=== PATIENT | male | born 1960 | race Caucasian/White ===

== ENCOUNTER 2022-07-29 09:48 | Outpatient (CLI) | payer OTHER ==
--- NOTE | 2022-07-29 14:41 | XRAY Report ---
PROCEDURE: Knee 3 View RT INDICATIONS: PAIN IN RIGHT KNEE TECHNIQUE: 3 views of the right knee are obtained. COMPARISON: None. FINDINGS: Bones: No fractures or dislocations. No suspicious bony lesions. Mild tricompartment periarticular osteophyte formation. Soft tissues: No joint effusion. No suspicious soft tissue calcifications. IMPRESSION: 1. Osteoarthritis. 2. No acute fracture. No osseous lesion. If symptoms and/or clinical suspicion for pathology continue , further assessment with repeat plain films, or advanced imaging (e.g., CT, MRI, or bone scan) is re commended for further assessment. Reviewed by: Corbin Myers MD on 07/29/2022 2:40 PM PST Approved by: Corbin Myers MD on 07/29/2022 2:40 PM PST Station ID: [id number]
== END 2022-07-29 09:49 | disposition home or self-care (01) ==
LOC: DI 09:48
PROVIDERS: ATTEND Physician Assistant
DX: M17.11 Unilateral primary osteoarthritis, right knee (principal)

== ENCOUNTER 2023-04-14 16:50 | Emergency (ER) | payer OTHER ==
[2023-04-14 17:47] VITALS: BP 158/86; O2SAT 99
--- NOTE | 2023-04-14 17:59 | Ultrasound Report ---
PROCEDURE: Duplex Ext Veins Left INDICATIONS: leg pain TECHNIQUE: Real-time imaging, as well as color and pulse Doppler interrogation, were performed of the lower extr emity deep veins from the inguinal ligament to the popliteal fossa. Attempted visualization of the ca lf veins was performed. COMPARISON: None. FINDINGS: The deep veins are normally compressible, and free of intraluminal thrombus. Color and pu lse Doppler demonstrate normal phasic intraluminal flow. There is normal augmentation response to di stal compression maneuver. IMPRESSION: No deep venous thrombosis of the visualized lower extremity. Note: Concordant preliminary findings given by the interface analyst upon the completion of the examination to Dr. Malik. Reviewed by: Juve Gibson MD on 04/14/2023 4:57 PM [facility] Approved by: Juve Gibson MD on 04/14/2023 4:57 PM [facility] Station ID: [id number]
--- NOTE | 2023-04-14 18:05 | ED Physician Documentation ---
PD HPI LOWER EXT INJURY - Stated complaint Stated Complaint: LT LEG/FT PX - Chief complaint Chief Complaint: Ext Problem - History obtained from History obtained from: Patient - Additional information Additional information: For about 3 weeks has had pain of the left Achilles tendon. There is no specific injury. He noticed some lumpiness to the Achilles tendon today went to the walk-in clinic where they became concerned for DVT so he was sent here to rule out out. PD PAST MEDICAL HISTORY - Present Medications Home Medications: Ambulatory Orders Medication Instructions Recorded Confirmed Omeprazole Magnesium 20 mg PO DAILY 04/14/23 04/14/23 Sertraline [Zoloft] 50 mg PO DAILY 04/14/23 04/14/23 - Allergies Allergies/Adverse Reactions: Allergies Allergy/AdvReac Type Severity Reaction Status Date / Time No Known Drug Allergies Allergy Verified 04/14/23 17:39 PD ED PE NORMAL - Vitals Vital signs reviewed: Yes - General General: Alert and oriented X 3, No acute distress - Extremities Extremities: Other (Normal Sandy's test on the left leg. He is tender over the left Achilles tendon, but has good strength. No tenderness of the plantar fascia.) - Neuro Neuro: Alert and oriented X 3, Normal speech Results - Vitals Vitals: Vital Signs - 24 hr 04/14/23 17:35 Temperature 37 C Heart Rate 78 Respiratory 20 Rate Blood Pressure 158/86 H O2 Saturation 99 Oxygen O2 Source Room air - Rads (name of study) DVT ultrasound was negative Relevant Findings:: Prelim report reviewed Departure - Departure Disposition: 01 Home, Self Care Clinical Impression: Achilles tendinitis Qualifiers: Laterality: left Qualified Code(s): M76.62 - Achilles tendinitis, left leg Condition: Good Record reviewed to determine appropriate education?: Yes Instructions: Achilles Tendonitis Comments: When you get back from your trip you can see a physical therapist or biometrics analyst. In the meantime do the stretches as shown and you can take Tylenol and/or ibuprofen as needed for pain. Return for new or worsening symptoms.
== END 2023-04-14 18:20 | disposition home or self-care (01) ==
LOC: ED 16:50
DX: M76.62 Achilles tendinitis, left leg (principal)
CPT/HCPCS: 99283; 99284